=== PATIENT | male | born 1935 | race Caucasian/White ===

== ENCOUNTER → 2017-01-28 | Outpatient (CLI) | payer MEDICARE, OTHER ==
[~2017-01-28] MED LIST: AMBR10TA3 PO; ASPI-515 PO; ATOR10TA9 PO; BIOT25004 PO; CHOL10003 PO; DOCU-30 PO; ENOX100S5 SQ; FENO145T13 PO; FLUT16SP NAS; FURO20TA3 PO; GELA600C PO; HYDR-3138 PO; INSU100V8 SQ; LIRA0.6P INJ; LORA-439 PO; MIRA25TA PO; MONT10TA9 PO; MULT-82 PO; NATE120T PO; OMEP-110 PO; SPIR25TA3 PO; TADA20TA33 PO; TAMS-11 PO; TRAM-28 PO; UBID100C11 PO; VIT1TABL32 PO
== END | disposition home or self-care (01) ==
LOC: CVU 10:55
PROVIDERS: ATTEND Internal Medicine Cardiovascular Disease
DX: I50.30 Unspecified diastolic (congestive) heart failure (principal); I37.1 Nonrheumatic pulmonary valve insufficiency; I34.0 Nonrheumatic mitral (valve) insufficiency
CPT/HCPCS: 93306

== ENCOUNTER 2019-09-24 13:24 | Outpatient (CLI) | payer MEDICARE ==
[~2019-09-24 13:24] MED LIST changes: -BIOT25004 PO; +BIOT25005 PO; +DOCU-131 PO; -DOCU-30 PO; -FENO145T13 PO; +FENO145T30 PO; -FLUT16SP NAS; +FLUT16SP24 NAS; -HYDR-3138 PO; +HYDR-3237 PO; +MULT-642 PO; -MULT-82 PO; -SPIR25TA3 PO; +SPIR25TA5 PO; -TRAM-28 PO; +TRAM-47 PO; -UBID100C11 PO; +UBID100C41 PO
== END 2019-09-24 23:59 | disposition home or self-care (01) ==
LOC: CVU 13:24
PROVIDERS: ATTEND Internal Medicine Cardiovascular Disease
DX: I36.1 Nonrheumatic tricuspid (valve) insufficiency (principal); I27.29 Other secondary pulmonary hypertension
CPT/HCPCS: 93306

== ENCOUNTER 2020-03-03 14:02 | Emergency (ER) | payer MEDICARE ==
[~2020-03-03] VITALS: Ht 172.7 cm; Wt 130.0 kg
[~2020-03-03 14:02] MED LIST changes: +FENO145T19 PO; -FENO145T30 PO; +MONT10TA11 PO; -MONT10TA9 PO
[2020-03-03 14:06] VITALS: BP 123/61
--- NOTE | 2020-03-03 14:29 | NUR ---
PT CODE 250 IN PARKING GARAGE. PT TRIPPED OVER CURB, FELL TO HANDS, ABRASIONS TO RIGHT HAND AND CHIN. PT IN CCOLLAR. VSS. DENIES LOC.
[2020-03-03] MEDS ORDERED: ACETAMINOPHEN 500 MG TABLET ONE (15:23)
--- NOTE | 2020-03-03 15:28 | NUR ---
Patient/Caregiver given discharge instructions and they have confirmed that they understand the instructions. Patient wheeled to dc area w
[2020-03-03] MEDS ORDERED: ACETAMINOPHEN 500 MG TABLET PO ONE (15:30)
== END 2020-03-03 15:30 | disposition home or self-care (01) ==
LOC: ED 15:22
DX: S00.83XA Contusion of other part of head, initial encounter (principal); S60.222A Contusion of left hand, initial encounter; S60.221A Contusion of right hand, initial encounter; S09.90XA Unspecified injury of head, initial encounter; W01.0XXA Fall on same level from slipping, tripping and stumbling without subsequent striking against object, initial encounter; Y93.89 Activity, other specified; Y92.410 Unspecified street and highway as the place of occurrence of the external cause; Y99.8 Other external cause status
CPT/HCPCS: 70450; 99284

== ENCOUNTER → 2020-03-30 | Outpatient (CLI) | payer MEDICARE | END | disposition home or self-care (01) | LOC: CVU 09:14 | PROVIDERS: ATTEND Internal Medicine Cardiovascular Disease | DX: I83.91 Asymptomatic varicose veins of right lower extremity (principal) | CPT/HCPCS: 93970 ==

== ENCOUNTER → 2020-12-19 | Outpatient (CLI) | payer MEDICARE ==
[~2020-12-19] MED LIST changes: -ASPI-515 PO; +ASPI-963 PO; -MONT10TA11 PO; +MONT10TA17 PO
== END | disposition home or self-care (01) ==
LOC: CVU 12:23
PROVIDERS: ATTEND Internal Medicine Cardiovascular Disease
DX: I08.0 Rheumatic disorders of both mitral and aortic valves (principal); I10 Essential (primary) hypertension; I26.09 Other pulmonary embolism with acute cor pulmonale
CPT/HCPCS: 93306